=== PATIENT | male | born 1990 ===

== ENCOUNTER 2020-08-11 20:34 | Emergency (ER) | payer OTHER, BC ==
[~2020-08-11] VITALS: Ht 177.8 cm; Wt 95.2 kg
[2020-08-11] MEDS ORDERED: FLUORESCEIN (FLUOR-I-STRIPS) 1 MG STRP ONE (20:59)
[2020-08-11] MEDS ORDERED: TETRACAINE 0.5% OPHTH SOLN 4 ML BTL (SINGLE DOSE ONLY) ONE (21:00)
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
[2020-08-11] MEDS ORDERED: GENTAMICIN 0.3% OPHTH SOLN 5 ML ONE (21:11)
[2020-08-11] MEDS ORDERED: BSS 15 ML IR ONE (21:15)
[2020-08-11] MEDS ORDERED: TETRACAINE 0.5% OPHTH SOLN 4 ML BTL (SINGLE DOSE ONLY) OU ONE (21:15)
[2020-08-11] MEDS ORDERED: FLUORESCEIN (FLUOR-I-STRIPS) 1 MG STRP OU ONE (21:15)
[2020-08-11 22:18] VITALS: BP 151/99
== END 2020-08-11 22:18 | disposition home or self-care (01) ==
LOC: EDUNIT# 20:34 → ER 20:35
DX: S00.211A Abrasion of right eyelid and periocular area, initial encounter (principal); V89.2XXA Person injured in unspecified motor-vehicle accident, traffic, initial encounter
CPT/HCPCS: 99282